=== PATIENT | female | born 1985 | race Caucasian/White ===

== ENCOUNTER 2020-09-16 17:06 | Emergency (ER) | payer OTHER, MEDICAID ==
[~2020-09-16] VITALS: Ht 165.1 cm; Wt 72.6 kg
[2020-09-16] MEDS ORDERED: BRIVIACT100 MG PO (17:23)
[2020-09-16] MEDS ORDERED: CLOZAPINE200 MG PO (17:24)
[2020-09-16] MEDS ORDERED: TRAZODONE HCL50 MG PO (17:24)
[2020-09-16] MEDS ORDERED: FLUOXETINE HCL40 MG PO (17:24)
[2020-09-16] MEDS ORDERED: CLOZAPINE100 M1 PO (17:24)
[2020-09-16 18:13] LABS: ABSOLUTE LYMPHOCYTES 0.8 thou/uL (0.8-5.3); ABSOLUTE MONOCYTES 0.4 thou/uL (0.0-1.2); ABSOLUTE NEUTROPHILS 4.5 thou/uL (1.6-8.1); BASOPHILS 0.4 %; EOSINOPHILS 0.3 %; HEMATOCRIT 35.7 % (37.0-47.0); HEMOGLOBIN 11.7 gm/dL (12.0-15.0); LYMPHOCYTES 13.3 %; MCHC 32.9 g/dL (28.0-37.0); MCV 88.2 fL (80.0-100.0); MONOCYTES 7.7 %; MPV 8.6 fl. (7.2-11.1); NUCLEATED RBCS 0 /100WBC; PLATELET COUNT* 155 thou/uL (150-400); POLYS 78.3 %; RBC 4.05 mil/uL (4.20-5.00); RDW-CV 15.4 % (10.5-14.5); WBC 5.8 thou/uL (4.0-11.0)
[2020-09-16 18:20] LABS: CALCIUM 7.6 mg/dL (8.5-10.1); CREATININE 0.7 mg/dL (0.6-1.3); POTASSIUM 3.6 mmol/L (3.5-5.1)
[2020-09-16 18:25] LABS: ALBUMIN 3.5 g/dL (3.4-5.0); TOTAL BILIRUBIN 0.3 mg/dL (<0.1-1.0); TOTAL PROTEIN 6.8 g/dL (6.4-8.2)
[2020-09-16] MEDS ORDERED: MIRALAX119 GM PO (20:43)
[2020-09-16] MEDS ORDERED: CITRATE OF MAG296 M1 PO (20:53)
[2020-09-16 21:03] VITALS: BP 120/77
== END 2020-09-16 21:03 | disposition home or self-care (01) ==
LOC: M.ERS 17:06
PROVIDERS: Physician Assistant
DX: K59.00 Constipation, unspecified (principal); F31.9 Bipolar disorder, unspecified; F20.9 Schizophrenia, unspecified; Z79.899 Other long term (current) drug therapy